=== PATIENT | male | born 1995 | race Caucasian/White ===

== ENCOUNTER 2020-03-21 10:35 | Observation (INO) | payer OTHER ==
[2020-03-21] MEDS ORDERED: HYDROmorphone 0.5 MG/0.5 ML SYRINGE IVP STA (11:00)
[2020-03-21] MEDS ORDERED: SODIUM CHLORIDE 0.9% 2,000 ML IV STA (11:00)
[2020-03-21] MEDS ORDERED: ONDANSETRON 4 MG/2 ML VIAL IVP STA (11:00)
--- NOTE | 2020-03-21 11:30 | ED ---
Abdominal Pain HPI - General Chief Complaint: Abdominal Pain Stated Complaint: Abd/back pain Time Seen by Provider: 03/21/20 10:53 Source: patient, RN notes reviewed Mode of arrival: ambulatory Limitations: no limitations - History of Present Illness Initial Comments: This a 25-year-old male presents emergency Department chief complaint of right lower quadrant abdominal pain. Patient states started 4 days ago states it is quite severe. Patient states that he cannot tolerate the pain anymore. He was a gradual onset of symptoms has been to nausea no vomiting no diarrhea no constipation he states that he's had decreased urine output. Patient has appointment to dysuria. Patient states that it does radiate to his right low back region also. No known fevers. He states she's had hot and cold flashes. - Related Data Home Medications Medication Instructions Recorded Confirmed No Known Home Medications 03/21/20 03/21/20 Allergies Allergy/AdvReac Type Severity Reaction Status Date / Time codeine Allergy Unknown Verified 03/21/20 12:32 Review of Systems ROS Statement: Those systems with pertinent positive or pertinent negative responses have been documented in the HPI. ROS Other: All systems not noted in ROS Statement are negative. Past Medical History Past Medical History: No Reported History Additional Past Medical History / Comment(s): pneumothorax History of Any Multi-Drug Resistant Organisms: None Reported Past Surgical History: No Surgical Hx Reported Past Psychological History: No Psychological Hx Reported Smoking Status: Never smoker Past Alcohol Use History: None Reported Past Drug Use History: None Reported General Exam Limitations: no limitations General appearance: alert, in no apparent distress Head exam: Present: atraumatic, normocephalic, normal inspection Eye exam: Present: normal appearance, PERRL, EOMI. Absent: scleral icterus, conjunctival injection, periorbital swelling ENT exam: Present: normal exam, normal oropharynx, mucous membranes moist Neck exam: Present: normal inspection, full ROM. Absent: tenderness, meningismus, lymphadenopathy Respiratory exam: Present: normal lung sounds bilaterally. Absent: respiratory distress, wheezes, rales, rhonchi, stridor Cardiovascular Exam: Present: normal rhythm, tachycardia, normal heart sounds. Absent: systolic murmur, diastolic murmur, rubs, gallop, clicks GI/Abdominal exam: Present: soft, tenderness (Moderate right lower quadrant), normal bowel sounds. Absent: distended, guarding, rebound, rigid Back exam: Absent: CVA tenderness (R), CVA tenderness (L) Neurological exam: Present: alert, oriented X3 Skin exam: Present: warm, dry, intact, normal color. Absent: rash Course Vital Signs 03/21/20 10:49 Temperature 97.9 F Pulse Rate 117 H Respiratory 16 Rate Blood Pressure 105/58 O2 Sat by Pulse 100 Oximetry Medical Decision Making - Medical Decision Making 25-year-old male presented for severe abdominal pain. Patient's presented in moderate discomfort. CT shows evidence of dilated colonic bowel with fecal stasis and questionable partial obstruction. - Lab Data Result diagrams: 03/21/20 11:21 03/21/20 11:21 Lab Results 03/21/20 03/21/20 03/21/20 Range/Units 11:21 11:21 11:21 WBC 7.3 (3.8-10.6) k/uL RBC 4.77 (4.30-5.90) m/uL Hgb 16.3 (13.0-17.5) gm/dL Hct 46.7 (39.0-53.0) % MCV 97.9 (80.0-100.0) fL MCH 34.1 (25.0-35.0) pg MCHC 34.8 (31.0-37.0) g/dL RDW 12.2 (11.5-15.5) % Plt Count 251 (150-450) k/uL Neutrophils % 66 % Lymphocytes % 23 % Monocytes % 6 % Eosinophils % 3 % Basophils % 0 % Neutrophils # 4.8 (1.3-7.7) k/uL Lymphocytes # 1.7 (1.0-4.8) k/uL Monocytes # 0.5 (0-1.0) k/uL Eosinophils # 0.3 (0-0.7) k/uL Basophils # 0.0 (0-0.2) k/uL Sodium 140 (137-145) mmol/L Potassium 4.3 (3.5-5.1) mmol/L Chloride 101 (98-107) mmol/L Carbon Dioxide 29 (22-30) mmol/L Anion Gap 10 mmol/L BUN 11 (9-20) mg/dL Creatinine 0.68 (0.66-1.25) mg/dL Est GFR (CKD-EPI)AfAm >90 (>60 ml/min/1.73 sqM) Est GFR (CKD-EPI)NonAf >90 (>60 ml/min/1.73 sqM) Glucose 78 (74-99) mg/dL Plasma Lactic Acid Toni (0.7-2.0) mmol/L Calcium 9.2 (8.4-10.2) mg/dL Total Bilirubin 0.8 (0.2-1.3) mg/dL AST 24 (17-59) U/L ALT 13 (4-49) U/L Alkaline Phosphatase 80 (38-126) U/L Total Protein 7.5 (6.3-8.2) g/dL Albumin 4.3 (3.5-5.0) g/dL Lipase 73 (23-300) U/L Urine Color Yellow Urine Appearance Clear (Clear) Urine pH 6.0 (5.0-8.0) Ur Specific [place] 1.021 (1.001-1.035) Urine Protein Negative (Negative) Urine Glucose (UA) Negative (Negative) Urine Ketones Negative (Negative) Urine Blood Negative (Negative) Urine Nitrite Negative (Negative) Urine Bilirubin 1+ H (Negative) Urine Urobilinogen <2.0 (<2.0) mg/dL Ur Leukocyte Esterase Negative (Negative) 03/21/20 Range/Units 11:21 WBC (3.8-10.6) k/uL RBC (4.30-5.90) m/uL Hgb (13.0-17.5) gm/dL Hct (39.0-53.0) % MCV (80.0-100.0) fL MCH (25.0-35.0) pg MCHC (31.0-37.0) g/dL RDW (11.5-15.5) % Plt Count (150-450) k/uL Neutrophils % % Lymphocytes % % Monocytes % % Eosinophils % % Basophils % % Neutrophils # (1.3-7.7) k/uL Lymphocytes # (1.0-4.8) k/uL Monocytes # (0-1.0) k/uL Eosinophils # (0-0.7) k/uL Basophils # (0-0.2) k/uL Sodium (137-145) mmol/L Potassium (3.5-5.1) mmol/L Chloride (98-107) mmol/L Carbon Dioxide (22-30) mmol/L Anion Gap mmol/L BUN (9-20) mg/dL Creatinine (0.66-1.25) mg/dL Est GFR (CKD-EPI)AfAm (>60 ml/min/1.73 sqM) Est GFR (CKD-EPI)NonAf (>60 ml/min/1.73 sqM) Glucose (74-99) mg/dL Plasma Lactic Acid Toni 1.5 (0.7-2.0) mmol/L Calcium (8.4-10.2) mg/dL Total Bilirubin (0.2-1.3) mg/dL AST (17-59) U/L ALT (4-49) U/L Alkaline Phosphatase (38-126) U/L Total Protein (6.3-8.2) g/dL Albumin (3.5-5.0) g/dL Lipase (23-300) U/L Urine Color Urine Appearance (Clear) Urine pH (5.0-8.0) Ur Specific [place] (1.001-1.035) Urine Protein (Negative) Urine Glucose (UA) (Negative) Urine Ketones (Negative) Urine Blood (Negative) Urine Nitrite (Negative) Urine Bilirubin (Negative) Urine Urobilinogen (<2.0) mg/dL Ur Leukocyte Esterase (Negative) Disposition Clinical Impression: Abdominal pain, Partial bowel obstruction, Constipation Disposition: ADMITTED IP TO THIS [facility] Condition: Fair Referrals: None,Stated [Primary Care Provider] - 1-2 days
[2020-03-21 11:35] LABS: Appearance,Urine Clear (Clear); Bilirubin,Urine 1+ (Negative); Blood,Urine Negative (Negative); Color,Urine Yellow; Glucose,Urine (UA) Negative (Negative); Ketones,Urine Negative (Negative); Leukocyte Esterase,Urine Negative (Negative); Nitrite,Urine Negative (Negative); Protein,Urine Negative (Negative); Specific Gravity,Urine 1.021 (1.001-1.035); Urobilinogen,Urine <2.0 mg/dL (<2.0)
[2020-03-21 11:39] LABS: Basophils % (A) 0 %; Eosinophils # (A) 0.3 k/uL (0-0.7); Eosinophils % (A) 3 %; HCT 46.7 % (39.0-53.0); HGB 16.3 gm/dL (13.0-17.5); Lymphocytes # (A) 1.7 k/uL (1.0-4.8); Lymphocytes % (A) 23 %; MCH 34.1 pg (25.0-35.0); MCHC 34.8 g/dL (31.0-37.0); MCV 97.9 fL (80.0-100.0); Mean Platelet Volume 7.5; Monocytes # (A) 0.5 k/uL (0-1.0); Monocytes % (A) 6 %; Neutrophils # (A) 4.8 k/uL (1.3-7.7); Neutrophils % (A) 66 %; Platelet Count 251 k/uL (150-450); RBC 4.77 m/uL (4.30-5.90); RDW 12.2 % (11.5-15.5); WBC 7.3 k/uL (3.8-10.6)
[2020-03-21 11:40] LABS: ALT 13 U/L (4-49); AST 24 U/L (17-59); African American GFR (CKD) >90 (>60 ml/min/1.73 sqM); Albumin 4.3 g/dL (3.5-5.0); Alkaline Phosphatase 80 U/L (38-126); Anion Gap 10 mmol/L; Blood Urea Nitrogen 11 mg/dL (9-20); Calcium 9.2 mg/dL (8.4-10.2); Carbon Dioxide 29 mmol/L (22-30); Chloride 101 mmol/L (98-107); Glucose 78 mg/dL (74-99); Non-African American GFR(CKD) >90 (>60 ml/min/1.73 sqM); Potassium 4.3 mmol/L (3.5-5.1); Sodium 140 mmol/L (137-145); Total Bilirubin 0.8 mg/dL (0.2-1.3); Total Protein 7.5 g/dL (6.3-8.2)
--- NOTE | 2020-03-21 12:19 | CT ---
EXAMINATION TYPE: CT abdomen pelvis w con DATE OF EXAM: 03/21/2020 COMPARISON: None HISTORY: Stomach pains CT DLP: 691.1 mGycm Automated exposure control for dose reduction was used. CONTRAST: CT scan of the abdomen pelvis is performed with IV Contrast, patient injected with 100 mL of Isovue 3 00. FINDINGS- LUNG BASES- No significant abnormality is appreciated. LIVER/GB- No gross abnormality is appreciated. PANCREAS- No gross abnormality is seen. SPLEEN- No gross abnormality is seen. ADRENALS- No gross abnormality is seen. KIDNEYS/BLADDER-no hydronephrosis. Sub-5 mm hypodensities in the kidneys are too small to characteriz e. Statistically most likely related renal cysts.. BOWEL-there is marked distention of the bowel with severe retained fecal debris throughout the right colon extending into the cecum. Appendix normal. The stomach appears distended with particulate matte r. There are few prominent small bowel loops with enhancing cardenas which could be on the basis of ente ritis. Obstructive pattern not excluded. LYMPH NODES-within the mesentery there are multiple lymph nodes the largest measuring a short axis of 1 cm. This is noted greater in the left abdomen.. OSSEOUS STRUCTURES- No significant abnormality is seen. OTHER- aorta of normal caliber. Portal vein and mesenteric vasculature patent and of normal orientat ion. Note is made of a small amount of fluid within the left pelvis. No free air. IMPRESSION- 1. Marked distention of the colon and stomach. There is severe retained fecal debris throughout the r ight colon correlate for constipation. Appendix normal. 2. There are few prominent small bowel loops with suggestion of enhancing wall anteriorly within the left abdomen particularly noted on image [id number]. Correlate for an enteritis. Partial obstructive patte rn not excluded. Small amount of fluid is noted within the pelvis. 3. Numerous small lymph nodes within the mesentery correlate for mesenteric adenitis.
[2020-03-21] MEDS ORDERED: ONDANSETRON 4 MG/2 ML VIAL IVP PRN (12:50)
[2020-03-21] MEDS ORDERED: KETOROLAC 30 MG/ML 1 ML VIAL IVP PRN (12:50)
[2020-03-21] MEDS ORDERED: MAGNESIUM HYDROXIDE 2,400 MG/10 ML CUP PO PRN (12:51)
[2020-03-21] MEDS: SODIUM CHLORIDE 0.9% 1,000 ML IV SCH (14:01)
[2020-03-22 00:37] VITALS: TEMP 97.9
[2020-03-22] MEDS: SODIUM CHLORIDE 0.9% 1,000 ML IV SCH ×2 (03:42→08:06)
[2020-03-22 08:01] VITALS: BP 120/60; PULSE 82; RESP 12
--- NOTE | 2020-03-22 09:48 | P.GSHP ---
History of Present Illness H&P Date: 03/22/20 Chief Complaint: Abdominal pain This a 25-year-old male who was admitted through the emergency room with complaints of abdominal pain. Patient states he had several days of abdominal pain. He was admitted through the emergency room yesterday.Patient states his pain has resolved. He is currently hungry. Past Medical History Past Medical History: Respiratory Disorder Additional Past Medical History / Comment(s): L pneumothorax History of Any Multi-Drug Resistant Organisms: None Reported Past Surgical History: No Surgical Hx Reported Past Anesthesia/Blood Transfusion Reactions: Unable to Obtain Additional Past Anesthesia/Blood Transfusion Reaction / Comment(s): Pt has never had anesthesia. Smoking Status: Former smoker - Past Family History Mother Family Medical History: No Reported History Additional Family Medical History / Comment(s): Mother is healthy Father Family Medical History: No Reported History Additional Family Medical History / Comment(s): Father is healthy Medications and Allergies Home Medications Medication Instructions Recorded Confirmed Type No Known Home Medications 03/21/20 03/21/20 History Allergies Allergy/AdvReac Type Severity Reaction Status Date / Time codeine Allergy Unknown Verified 03/21/20 12:32 Surgical - Exam Vital Signs Temp Pulse Resp BP Pulse Ox 97.9 F 117 H 16 105/58 100 03/21/20 10:49 03/21/20 10:49 03/21/20 10:49 03/21/20 10:49 03/21/20 10:49 - General well developed, well nourished, no distress - Eyes PERRL - ENT normal pinna - Neck no masses - Respiratory normal expansion - Cardiovascular Rhythm: regular - Abdomen Abdomen: soft, non tender Results - Labs 03/21/20 11:21 03/21/20 11:21 Abnormal Lab Results - Last 24 Hours (Table) 03/21/20 Range/Units 11:21 Urine Bilirubin 1+ H (Negative) Diabetes panel 03/21/20 Range/Units 11:21 Sodium 140 (137-145) mmol/L Potassium 4.3 (3.5-5.1) mmol/L Chloride 101 (98-107) mmol/L Carbon Dioxide 29 (22-30) mmol/L BUN 11 (9-20) mg/dL Creatinine 0.68 (0.66-1.25) mg/dL Glucose 78 (74-99) mg/dL Calcium 9.2 (8.4-10.2) mg/dL AST 24 (17-59) U/L ALT 13 (4-49) U/L Alkaline Phosphatase 80 (38-126) U/L Total Protein 7.5 (6.3-8.2) g/dL Albumin 4.3 (3.5-5.0) g/dL Calcium panel 03/21/20 Range/Units 11:21 Calcium 9.2 (8.4-10.2) mg/dL Albumin 4.3 (3.5-5.0) g/dL Pituitary panel 03/21/20 Range/Units 11:21 Sodium 140 (137-145) mmol/L Potassium 4.3 (3.5-5.1) mmol/L Chloride 101 (98-107) mmol/L Carbon Dioxide 29 (22-30) mmol/L BUN 11 (9-20) mg/dL Creatinine 0.68 (0.66-1.25) mg/dL Glucose 78 (74-99) mg/dL Calcium 9.2 (8.4-10.2) mg/dL Adrenal panel 03/21/20 Range/Units 11:21 Sodium 140 (137-145) mmol/L Potassium 4.3 (3.5-5.1) mmol/L Chloride 101 (98-107) mmol/L Carbon Dioxide 29 (22-30) mmol/L BUN 11 (9-20) mg/dL Creatinine 0.68 (0.66-1.25) mg/dL Glucose 78 (74-99) mg/dL Calcium 9.2 (8.4-10.2) mg/dL Total Bilirubin 0.8 (0.2-1.3) mg/dL AST 24 (17-59) U/L ALT 13 (4-49) U/L Alkaline Phosphatase 80 (38-126) U/L Total Protein 7.5 (6.3-8.2) g/dL Albumin 4.3 (3.5-5.0) g/dL Assessment and Plan Assessment: Resolved abdominal pain. Patient may have had a viral gastritis. He was regular diet. He is actually discharged home.
--- NOTE | 2020-03-22 10:15 | P.DS ---
Providers Date of admission: 03/21/20 12:48 Expected date of discharge: 03/22/20 Attending physician: Johan Cordova Primary care physician: Stated None Hospital Course: this a 25-year-old male who was admitted to the hospital complaints of abdominal pain for possible's obstruction. Patient resymptoms resolved spontaneously. Patient was discharged home on admission day one. Please hospital for details. Patient Condition at Discharge: Fair Plan - Discharge Summary Discharge Rx Participant: No New Discharge Prescriptions: No Action No Known Home Medications Discharge Medication List No Known Home Medications 03/21/20 [History] Follow up Appointment(s)/Referral(s): None,Stated [Primary Care Provider] - 1-2 days Patient Instructions/Handouts: Constipation (DC)
== END 2020-03-22 10:23 | disposition home or self-care (01) ==
LOC: EC 10:35 → 1SOBS 12:48
PROVIDERS: ADMIT Surgery; ATTEND Surgery
DX: R10.31 Right lower quadrant pain (principal); M54.9 Dorsalgia, unspecified; R11.0 Nausea; R30.0 Dysuria; K59.00 Constipation, unspecified; Z87.891 Personal history of nicotine dependence; Z88.5 Allergy status to narcotic agent; Z87.09 Personal history of other diseases of the respiratory system; Z11.59 Encounter for screening for other viral diseases
CPT/HCPCS: 96361 ×3; 96375 ×2; 96374; 99285; 36415; 80053; 83605; 83690; 85025; 81003; 74177; G0378 ×2; U0003; J2405; J1885; J1170; Q9967

== ENCOUNTER 2020-03-30 13:41 | Emergency (ER) | payer OTHER ==
[2020-03-30 13:50] VITALS: RESP 18
[2020-03-30] MEDS ORDERED: cefTRIAXone 1,000 MG VIAL (IM USE) IM STA (14:38)
[2020-03-30] MEDS ORDERED: AMOXIC-POT CLAV 875MG STARTER PACK 2 TAB BTL PO STA (14:38)
[2020-03-30] MEDS ORDERED: DIPH,PERTUS(ACELL)TETVAC-LF 0.5 ML VIAL IM ONE (14:39)
--- NOTE | 2020-03-30 14:44 | ED ---
General Adult HPI - General Chief complaint: Extremity Injury, Lower Stated complaint: R Leg Swelling/Pain Time Seen by Provider: 03/30/20 13:56 Source: patient, RN notes reviewed Mode of arrival: wheelchair Limitations: no limitations - History of Present Illness Initial comments: 25-year-old male with a past medical history of pneumothorax presents to the emergency department for a chief complaint of right foot swelling. Patient states that 4 days ago he scraped his lower burroughs on a trailer hitch. Patient states that 2 days ago he started to get redness and swelling of the foot. States is warm to touch. Patient states he lawanda a line around it but it started to spread past the line. He denies any calf pain. Denies any other injuries. Patient not up-to-date on tetanus.Patient has no other complaints at this time including shortness of breath, chest pain, abdominal pain, nausea or vomiting, headache, or visual changes. - Related Data Previous Rx's Medication Instructions Recorded Amoxicillin/Potassium Clav 1 tab PO Q12HR #28 tab 03/30/20 [Augmentin 875-125 Tablet] Allergies Allergy/AdvReac Type Severity Reaction Status Date / Time codeine Allergy Unknown Verified 03/30/20 13:47 Review of Systems ROS Statement: Those systems with pertinent positive or pertinent negative responses have been documented in the HPI. ROS Other: All systems not noted in ROS Statement are negative. Past Medical History Past Medical History: Respiratory Disorder Additional Past Medical History / Comment(s): L pneumothorax History of Any Multi-Drug Resistant Organisms: None Reported Past Surgical History: No Surgical Hx Reported Past Anesthesia/Blood Transfusion Reactions: Unable to Obtain Additional Past Anesthesia/Blood Transfusion Reaction / Comment(s): Pt has never had anesthesia. Past Psychological History: No Psychological Hx Reported Smoking Status: Former smoker Past Alcohol Use History: None Reported Past Drug Use History: None Reported - Past Family History Mother Family Medical History: No Reported History Additional Family Medical History / Comment(s): Mother is healthy Father Family Medical History: No Reported History Additional Family Medical History / Comment(s): Father is healthy General Exam Limitations: no limitations General appearance: alert, in no apparent distress Head exam: Present: atraumatic, normocephalic, normal inspection Eye exam: Present: normal appearance, PERRL, EOMI. Absent: scleral icterus, conjunctival injection, periorbital swelling ENT exam: Present: normal exam, mucous membranes moist Neck exam: Present: normal inspection. Absent: tenderness, meningismus, lymphadenopathy Respiratory exam: Present: normal lung sounds bilaterally. Absent: respiratory distress, wheezes, rales, rhonchi, stridor Cardiovascular Exam: Present: regular rate, normal rhythm, normal heart sounds. Absent: systolic murmur, diastolic murmur, rubs, gallop, clicks Extremities exam: Present: other (Lateral aspect of the foot up to the mid dorsal area and lateral right ankle is erythematous and edematous. Appears cellulitic in nature. No evident abscess.) Course Vital Signs 03/30/20 13:47 Temperature 98.1 F Pulse Rate 95 Respiratory 18 Rate Blood Pressure 114/52 O2 Sat by Pulse 99 Oximetry Medical Decision Making - Medical Decision Making Patient had edema and erythema of the lateral aspect of the right foot and ankle. Neurovascular status intact with capillary refill less than 2 seconds. Patient afebrile. Patient was given IM Rocephin and started on Augmentin. Follow-up with primary care in 1-2 days. Line was drawn around the area of redness. I discussed that if it may take 24 hours for abx to kick in but if it is increasing past this line significantly in the next 24 hours he needs to return. Discussed that if it is not improving after 24-48 hours he needs to return. Discussed strict return parameters given the amount of swelling in the foot. Patient will otherwise follow-up with his doctor in one to 2 days for recheck I discussed this case with attending Dr. Osei who agrees with this assessment and treatment plan. Disposition Clinical Impression: Cellulitis Disposition: HOME SELF-CARE Condition: Good Instructions (If sedation given, give patient instructions): Cellulitis (ED) Additional Instructions: Please take Augmentin as directed. Please follow-up with primary care for recheck in one to 2 days. If the redness is spreading significantly past the line in the next 24 hours return to the emergency room. If it is not improving after 24-48 hours make sure to return to the emergency room. If you have any other worsening symptoms return for further evaluation. Prescriptions: Amoxicillin/Potassium Clav [Augmentin 875-125 Tablet] 1 tab PO Q12HR #28 tab Is patient prescribed a controlled substance at d/c from ED?: No Referrals: Esther Gonsalez MD [REFERRING] - 1-2 days Time of Disposition: 14:43
[2020-03-30 15:13] VITALS: BP 112/52; PULSE 88; TEMP 98
== END 2020-03-30 15:12 | disposition home or self-care (01) ==
LOC: EC 13:41
DX: L03.115 Cellulitis of right lower limb (principal); Z23 Encounter for immunization; Z87.891 Personal history of nicotine dependence; Z88.5 Allergy status to narcotic agent
CPT/HCPCS: 90715; 99283; 90471; 96372; J0696

== ENCOUNTER 2020-06-24 17:11 | Emergency (ER) | payer OTHER ==
[2020-06-24 17:26] VITALS: RESP 18; TEMP 98.6
[2020-06-24] MEDS ORDERED: DIPH,PERTUS(ACELL)TETVAC-LF 0.5 ML VIAL IM ONE (18:00)
[2020-06-24] MEDS ORDERED: HYDROmorphone 0.5 MG/0.5 ML SYRINGE IVP STA ×2 (18:00→18:54)
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
[2020-06-24 18:13] LABS: Basophils % (A) 0 %; Eosinophils # (A) 0.1 k/uL (0-0.7); Eosinophils % (A) 1 %; HCT 43.1 % (39.0-53.0); HGB 14.1 gm/dL (13.0-17.5); Lymphocytes # (A) 1.3 k/uL (1.0-4.8); Lymphocytes % (A) 10 %; MCH 30.6 pg (25.0-35.0); MCHC 32.8 g/dL (31.0-37.0); MCV 93.2 fL (80.0-100.0); Mean Platelet Volume 6.8; Monocytes # (A) 0.7 k/uL (0-1.0); Monocytes % (A) 5 %; Neutrophils % (A) 84 %; Platelet Count 265 k/uL (150-450); RBC 4.63 m/uL (4.30-5.90); RDW 12.5 % (11.5-15.5); WBC 13.2 k/uL (3.8-10.6)
[2020-06-24 18:27] LABS: Partial Thromboplastin Time 26.1 sec (22.0-30.0); Prothrombin Time 10.4 sec (9.0-12.0)
[2020-06-24 18:30] LABS: ALT 16 U/L (4-49); AST 42 U/L (17-59); African American GFR (CKD) >90 (>60 ml/min/1.73 sqM); Albumin 4.5 g/dL (3.5-5.0); Alcohol <10 mg/dL; Alkaline Phosphatase 91 U/L (38-126); Anion Gap 9 mmol/L; Blood Urea Nitrogen 19 mg/dL (9-20); Calcium 9.3 mg/dL (8.4-10.2); Carbon Dioxide 25 mmol/L (22-30); Chloride 105 mmol/L (98-107); Glucose 102 mg/dL (74-99); Non-African American GFR(CKD) >90 (>60 ml/min/1.73 sqM); Potassium 3.8 mmol/L (3.5-5.1); Sodium 139 mmol/L (137-145); Total Protein 7.5 g/dL (6.3-8.2)
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
[2020-06-24 20:22] VITALS: BP 123/62; PULSE 112
== END 2020-06-24 19:52 | disposition other institution (70) ==
LOC: EC 17:11
DX: S01.83XA Puncture wound without foreign body of other part of head, initial encounter (principal); Z88.5 Allergy status to narcotic agent; Z23 Encounter for immunization; W34.00XA Accidental discharge from unspecified firearms or gun, initial encounter; Y92.89 Other specified places as the place of occurrence of the external cause
CPT/HCPCS: 93005; 86900; 86901; 80053; 84484; 85025; 85610; 85730; 86850; 80320; 72170; 71045; 72125; 70486; 70450; 90715; 99291; 96365; 96375; 96376; 90471; J0690; J1170; 36415

== ENCOUNTER 2025-03-23 12:14 | Emergency (ER) | payer OTHER ==
[2025-03-23 12:29] VITALS: BP 121/60; PULSE 120; RESP 20
--- NOTE | 2025-03-23 12:33 | ED ---
General Adult HPI - General Chief complaint: Skin/Abscess/Foreign Body Stated complaint: Lower Back Pain Time Seen by Provider: 03/23/25 12:26 Source: patient Mode of arrival: ambulatory Limitations: no limitations - History of Present Illness Initial comments: Dictation was produced using [id number] dictation software. please excuse any grammatical, word or spelling errors. Chief Complaint: 30-year-old healthy male presents to the emergency department w ith gluteus abscess History of Present Illness: 22-year-old male he presents emergency department w ith what he reports is a large gluteus abscess. Patient states he first noticed that approximately 2 weeks ago. Started draining which relieves some of the pressure. He does report some constitutional symptoms including fatigue, chills. patient does however report runny nose. Denies any obvious sick contacts. The ROS documented in this emergency department record has been reviewed and confirmed by me. Those systems with pertinent positive or negative responses have been documented in the HPI. All other systems are other negative and/or noncontributory. - Related Data Previous Rx's Medication Instructions Recorded Cephalexin [Keflex] 500 mg PO Q6HR 5 Days #20 cap 03/23/25 Sulfamethox-Tmp 800-160Mg [Bactrim 1 tab PO Q12HR 5 Days #10 tab 03/23/25 DS 800-160 mg] Allergies Allergy/AdvReac Type Severity Reaction Status Date / Time codeine Allergy Unknown Verified 03/23/25 12:29 Review of Systems ROS Statement: Those systems with pertinent positive or pertinent negative responses have been documented in the HPI. ROS Other: All systems not noted in ROS Statement are negative. Past Medical History Past Medical History: Respiratory Disorder Additional Past Medical History / Comment(s): L pneumothorax History of Any Multi-Drug Resistant Organisms: None Reported Past Surgical History: No Surgical Hx Reported Past Anesthesia/Blood Transfusion Reactions: Unable to Obtain Additional Past Anesthesia/Blood Transfusion Reaction / Comment(s): Pt has never had anesthesia. Past Psychological History: No Psychological Hx Reported Smoking Status: Never smoker Past Alcohol Use History: None Reported Past Drug Use History: None Reported - Past Family History Mother Family Medical History: No Reported History Additional Family Medical History / Comment(s): Mother is healthy Father Family Medical History: No Reported History Additional Family Medical History / Comment(s): Father is healthy General Exam - General Exam Comments Initial Comments: General: Well-appearing, nontoxic, no acute distress. Head: Normocephalic, atraumatic Eyes: PERRLA, EOMI ENT: Airway patent Chest: Nonlabored breathing Skin: No visual rash, normal skin tone Neuro: Alert and oriented 3 Musculoskeletal: No gross abnormalities Limitations: no limitations Course Vital Signs 03/23/25 12:26 Pulse Rate 120 H Respiratory 20 Rate Blood Pressure 121/60 O2 Sat by Pulse 95 Oximetry - Reevaluation(s) Reevaluation #1: 03/23/25 12:54 Rectal exam. There is a what appears to be a draining punctate lesion to the perianal area. Patient does report significant pelvic discomfort with bowel movements. States that his stool is coated with blood. Medical Decision Making - Medical Decision Making Was pt. sent in by a medical professional or institution (, PA, CRIME SPECIALIST, urgent care, hospital, or retirement...) When possible be specific @ -No Did you speak to anyone other than the patient for history (EMS, parent, family, police, friend...)? What history was obtained from this source @ -No Did you review nursing and triage notes (agree or disagree)? Why? @ -I reviewed and agree with nursing and triage notes Were old charts reviewed (outside hosp., previous admission, EMS record, old EKG, old radiological studies, urgent care reports/EKG's, retirement records)? Report findings @ -No old charts were reviewed Differential Diagnosis (chest pain, altered mental status, abdominal pain women, abdominal pain men, vaginal bleeding, musculoskeletal, weakness, fever, dyspnea, syncope, headache, dizziness, GI bleed, back pain, seizure, CVA, palpatations, mental health)? @ -Pelvic abscess, perirectal abscess, proctitis, STD EKG interpreted by me (3pts min.). @ -None done X-rays interpreted by me (1pt min.). @ -None done CT interpreted by me (1pt min.). @ -CT shows proctitis U/S interpreted by me (1pt. min.). @ -None done What testing was considered but not performed or refused? (CT, X-rays, U/S, labs)? Why? @ -None What meds were considered but not given or refused? Why? @ -None Was smoking cessation discussed for >3mins.? @ -No Were there social determinants of health that impacted care today? How? (Homelessness, low income, unemployed, alcoholism, drug addiction, transportation, low edu. Level, literacy, decrease access to med. care, usp, rehab)? @ -No Was there de-escalation of care discussed even if they declined (Discuss DNR or withdrawal of care, Hospice)? DNR status @ -No What co-morbidities impacted this encounter? (DM, HTN, Smoking, COPD, CAD, Cancer, CVA, ARF, Chemo, Hep., AIDS, mental health diagnosis, sleep apnea, morbid obesity)? @ -None Was patient admitted / discharged? Hospital course, mention meds given and route, prescriptions, significant lab abnormalities, going to OR and other pertinent info. @ -30-year-old male presents to the emergency department with draining perirectal wound. No obvious perirectal abscess. Patient did complain of some pelvic pain especially during bowel movements. Patient denies any anal receptive intercourse. Vital signs stable. CT did not show any pelvic abscess however did show some proctitis. Patient given dose of ceftriaxone. Labs unremarkable. Patient given course of antibiotics. Did you discuss the management of the patient with other professionals ( professionals i.e. , PA, CRIME SPECIALIST, lab, RT, psych nurse, licensed clinical social worker, flooring grader, teacher, first aid officer, machine adjuster leader case trim)? Give summary @ -No Was critical care preformed (if so, how long)? @ -No Undiagnosed new problem with uncertain prognosis? @ -No Drug Therapy requiring intensive monitoring for toxicity (Heparin, Nitro, Insulin, Cardizem)? @ -No Were any procedures done? @ -No Diagnosis/symptom? Acute, or Chronic, or Acute on Chronic? Uncomplicated (without systemic symptoms) or Complicated (systemic symptoms)? @ -Perianal abscess Side effects of treatment? @ -No Exacerbation, Progression, or Severe Exacerbation? @ -No Poses a threat to life or bodily function? How? (Chest pain, [place], [place], pneumonia, PE, COPD, DKA, ARF, appy, cholecystitis, CVA, Diverticulitis, Homicidal, Suicidal, threat to staff... and all critical care pts) @ -yes - Lab Data Result diagrams: 03/23/25 13:00 03/23/25 13:00 Lab Results 03/23/25 03/23/25 Range/Units 13:00 13:00 WBC 6.87 (4.50-10.00) 10*3/uL RBC 4.42 (4.40-5.60) 10*6/uL Hgb 14.3 (13.0-17.0) g/dL Hct 42.1 (39.6-50.0) % MCV 95.2 (80.0-97.0) fL MCH 32.4 H (27.0-32.0) pg MCHC 34.0 (32.0-37.0) g/dL Plt Count 319 (140-440) 10*3/uL MPV 9.3 L (9.5-12.2) fL Immature Gran % (Auto) 0.3 % Neutrophils % 62.4 % Lymphocytes % 25.2 % Monocytes % 10.2 % Eosinophils % 1.6 % Basophils % 0.3 % Immature Gran # 0.02 (0.00-0.04) 10*3/uL Neutrophils # 4.29 (1.80-7.70) 10*3/uL Lymphocytes # 1.73 (0.90-5.00) 10*3/uL Monocytes # 0.70 (0.20-1.00) 10*3/uL Eosinophils # 0.11 (0.04-0.35) 10*3/uL Basophils # 0.02 (0.00-0.10) 10*3/uL Sodium 142 (137-145) mmol/L Potassium 4.1 (3.5-5.1) mmol/L Chloride 104 (98-107) mmol/L Carbon Dioxide 27 (22-30) mmol/L Anion Gap 11 mmol/L BUN 16 (9-20) mg/dL Creatinine 0.71 (0.66-1.25) mg/dL Est GFR (CKD-EPI)AfAm >90 (>60 ml/min/1.73 sqM) Est GFR (CKD-EPI)NonAf >90 (>60 ml/min/1.73 sqM) Glucose 94 (74-99) mg/dL Calcium 10.0 (8.4-10.2) mg/dL Disposition Clinical Impression: Perianal abscess Disposition: HOME SELF-CARE Condition: Fair Instructions (If sedation given, give patient instructions): Anorectal Abscess and Anal Fistula (ED) Prescriptions: Sulfamethox-Tmp 800-160Mg [Bactrim DS 800-160 mg] 1 tab PO Q12HR 5 Days #10 tab Cephalexin [Keflex] 500 mg PO Q6HR 5 Days #20 cap Is patient prescribed a controlled substance at d/c from ED?: No Referrals: [facility] [NON-STAFF] - 1-2 days (Contact a primary care office to become established with a provider.) Brandi Lee MD [STAFF PHYSICIAN] - 1-2 days Time of Disposition: 14:46
[2025-03-23 13:11] LABS: Basophils # (A) 0.02 10*3/uL (0.00-0.10); Basophils % (A) 0.3 %; Eosinophils # (A) 0.11 10*3/uL (0.04-0.35); Eosinophils % (A) 1.6 %; HCT 42.1 % (39.6-50.0); HGB 14.3 g/dL (13.0-17.0); Lymphocytes # (A) 1.73 10*3/uL (0.90-5.00); Lymphocytes % (A) 25.2 %; MCH 32.4 pg (27.0-32.0); MCV 95.2 fL (80.0-97.0); Mean Platelet Volume 9.3 fL (9.5-12.2); Monocytes % (A) 10.2 %; Neutrophils # (A) 4.29 10*3/uL (1.80-7.70); Neutrophils % (A) 62.4 %; Platelet Count 319 10*3/uL (140-440); RBC 4.42 10*6/uL (4.40-5.60); RDW 11.9 % (11.5-14.5); WBC 6.87 10*3/uL (4.50-10.00)
[2025-03-23 13:32] LABS: African American GFR (CKD) >90 (>60 ml/min/1.73 sqM); Anion Gap 11 mmol/L; Blood Urea Nitrogen 16 mg/dL (9-20); Carbon Dioxide 27 mmol/L (22-30); Chloride 104 mmol/L (98-107); Glucose 94 mg/dL (74-99); Non-African American GFR(CKD) >90 (>60 ml/min/1.73 sqM); Potassium 4.1 mmol/L (3.5-5.1); Sodium 142 mmol/L (137-145)
--- NOTE | 2025-03-23 14:18 | CT ---
EXAMINATION TYPE: CT pelvis w con CT DLP: 890.4 mGycm, Automated exposure control for dose reduction was used. DATE OF EXAM: 03/23/2025 2:10 PM COMPARISON: CT abdomen pelvis 03/21/2020 CLINICAL INDICATION:Male, 30 years old with history of suspect pelvic abscess; Suspect pelvic abscess . Pain TECHNIQUE: Standard CT of the pelvis following the administration of 100 cc of Isovue [address] material. Coronal and sagittal reformats were performed. FINDINGS: LIVER: The visualized portion is unremarkable GALLBLADDER AND BILE DUCTS: Unremarkable. PANCREAS: The visualized portion is unremarkable SPLEEN: The visualized portion is unremarkable ADRENAL GLANDS: The visualized portion is unremarkable. KIDNEYS AND URETERS: No evidence of hydronephrosis or renal calculus. The kidneys enhance symmetrical ly. Contrast is demonstrated within both visualized distal ureters on the delayed phase. PELVIS BLADDER: Under distended, limiting evaluation. REPRODUCTIVE: Coarse calcifications of the prostate gland are identified. BOWEL: Circumferential wall thickening of the rectum measuring up to 8 mm. The appendix is within nor mal limits. No evidence of bowel obstruction. PERITONEUM: No evidence of pneumoperitoneum or free fluid. No evidence for abscess. VASCULATURE: No evidence of aortic aneurysm. MUSCULOSKELETAL: No acute osseous abnormalities LYMPH NODES: Few enlarged perirectal lymph nodes identified measuring up to 7 mm No other significant ly enlarged lymph nodes identified. SOFT TISSUE/ABDOMINAL WALL: Unremarkable IMPRESSION: 1. Circumferential wall thickening of the rectum suggesting proctitis. No evidence for abscess. 2. Few enlarged perirectal lymph nodes likely reactive to #1. [facility], , 03/23/2025 2:15 PM
[2025-03-23] MEDS ORDERED: cefTRIAXone IN SWFI 1,000 MG/10 ML SYRINGE IVP STA (14:43)
== END 2025-03-23 15:51 | disposition home or self-care (01) ==
LOC: EC 12:14
DX: L02.215 Cutaneous abscess of perineum (principal); Z88.5 Allergy status to narcotic agent
CPT/HCPCS: 36415; 80048; 85025; 72193; 99283; Q9967